=== PATIENT | female | born 1935 | race Caucasian/White ===

== ENCOUNTER → 2016-06-23 | Outpatient (REF) ==
[~2016-06-23] MED LIST: CEPHALEXIN500 M1 PO; CLEOCIN HCL300 MG PO; CYMBALTA 60MG60 MG PO; GLUCOPHAGE500 MG/TAB PO; LOPRESSOR100 MG PO; NORCO 325 MG-51 TAB PO; NORVASC 5MG5 MG/TAB PO; PLAQUENIL 200M200 MG PO; PRINIVIL20 MG PO; PRINZIDE 25 MG-1 TAB PO
== END ==
LOC: ZLAB.WCH 15:02
DX: Z01.89 Encounter for other specified special examinations (principal)

== ENCOUNTER → 2016-09-25 | Outpatient (REF) | LOC: ZLAB.WCH 19:09 | DX: Z01.89 Encounter for other specified special examinations (principal) ==

== ENCOUNTER → 2017-03-16 | Outpatient (REF) | LOC: ZLAB.WCH 18:38 | DX: Z01.89 Encounter for other specified special examinations (principal) ==

== ENCOUNTER → 2017-10-02 | Outpatient (REF) | LOC: ZLAB.WCH 08:40 | DX: Z01.89 Encounter for other specified special examinations (principal) ==

== ENCOUNTER → 2018-04-13 | Outpatient (REF) | LOC: ZLAB.WCH 18:40 | DX: Z01.89 Encounter for other specified special examinations (principal) ==

== ENCOUNTER → 2022-12-09 | Outpatient (CLI) | payer MEDICARE | LOC: CANSCHCLI → COL.RAD 09:16 | DX: C91.10 Chronic lymphocytic leukemia of B-cell type not having achieved remission (principal); D47.2 Monoclonal gammopathy; R59.1 Generalized enlarged lymph nodes | CPT/HCPCS: Q9967 ==